=== PATIENT | female | born 1960 | race Caucasian/White ===

== ENCOUNTER 2017-11-03 21:40 | Emergency (ER) | payer BC, OTHER ==
[2017-11-03] MEDS ORDERED: Amoxicillin 500 MG Cap PO ONE (21:59)
--- NOTE | 2017-11-03 22:02 | EDM.PDOC ---
ED HPI GENERAL MEDICAL PROBLEM - General Chief Complaint: Upper Extremity Injury/Pain Stated Complaint: FELL AND HURT LT ELBOW Time Seen by Provider: 11/03/17 21:40 Source of Information: Reports: Patient History Limitations: Reports: No Limitations - History of Present Illness INITIAL COMMENTS - FREE TEXT/NARRATIVE: 57 y.o.w.f bumped her left arm against a car door and felt a Bump and mile bleed at her left prox forearm. Pt has no LOF, FROM of all her extr. Pt is currently taking care for her . No other acute medical issues. BP 130/ 73 pulse 80 RR 18 Temp 36.4 Pulse ox 99% on RA. Onset: Today Onset Date: 11/03/17 Onset Time: 14:00 Duration: Hour(s): Location: Reports: Upper Extremity, Left Quality: Reports: Ache Severity: Mild Improves with: Reports: Rest Worsens with: Reports: Movement Context: Reports: Trauma (fell on left forearm) Associated Symptoms: Reports: No Other Symptoms left elbow Pain Score (Numeric/FACES): 5 - Related Data Allergies Allergy/AdvReac Type Severity Reaction Status Date / Time codeine Allergy Change Verified 11/03/17 21:51 Mental Status tree nut Allergy Hives Verified 11/03/17 21:51 Home Meds: Home Meds Gabapentin [Neurontin] 600 mg PO QID 10/27/13 [History] Lysine 1,000 mg PO DAILY 10/27/13 [History] Multivitamin [Multivitamins] 1 cap PO DAILY 10/27/13 [History] Naproxen Sodium [Aleve] 1 - 2 tab PO BID PRN 10/27/13 [History] Sennosides/Docusate Sodium [Stool Softener] 1 tab PO DAILY 10/27/13 [History] Simvastatin [Zocor] 40 mg PO DAILY 10/27/13 [History] Acetaminophen [Pain Relief] 1 - 2 tab PO Q4H PRN 09/03/14 [History] Albuterol Sulfate [Proair Hfa] 2 puff INH Q4H PRN 09/03/14 [History] Cyclobenzaprine [Flexeril] 10 mg PO TID PRN 09/03/14 [History] Furosemide 20 mg PO DAILY PRN 09/03/14 [History] Losartan [Cozaar] 50 mg PO DAILY 09/03/14 [History] Montelukast [Singulair] 10 mg PO BEDTIME 09/03/14 [History] Niacin 500 mg PO DAILY 09/03/14 [History] Potassium Gluconate 1 tab PO DAILY 09/03/14 [History] Triamcinolone Acetonide [Triamcinolone Acetonide 0.1% Crm] 1 applic TOP TID [History] Budesonide/Formoterol Fumarate [Symbicort 80-4.5 Mcg Inhaler] 1 puff IH BID 01/29 [History] Furosemide [Furosemide] 20 mg PO DAILY 08/19/16 [History] Gemfibrozil [Gemfibrozil] 600 mg PO BID 08/19/16 [History] Amitriptyline [Elavil] 40 mg PO BEDTIME 11/03/17 [History] Amoxicillin 500 mg PO Q8HR #30 capsule 11/03/17 [Rx] FLUoxetine HCl [Prozac] 20 mg PO DAILY 11/03/17 [History] Rizatriptan [Maxalt] 10 mg PO DAILY PRN 11/03/17 [History] Past Medical History HEENT History: Reports: Cataract, Impaired Vision, Other (See Below) Other HEENT History: lens implant Cardiovascular History: Reports: High Cholesterol, Hypertension Respiratory History: Reports: Asthma, Bronchitis, Recurrent, COPD, Pneumonia, Recurrent 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 Musculoskeletal History: Reports: Back Pain, Chronic, Other (See Below) Other Musculoskeletal History: Fx R wrist, bulge disc, L ankle sprain Neurological History: Reports: Concussion - Past Surgical History HEENT Surgical History: Reports: Cataract Surgery, Eye Surgery, Tonsillectomy GI Surgical History: Reports: Appendectomy, Cholecystectomy, Hernia, Inguinal Social & Family History - Tobacco Use Smoking Status *Q: Current Some Day Smoker Years of Tobacco use: 40 Packs/Tins Daily: 0.2 Used Tobacco, but Quit: Yes - Alcohol Use Days Per Week of Alcohol Use: 0 - Recreational Drug Use Recreational Drug Use: Yes Drug Use in Last 12 Months: No Recreational Drug Type: Reports: Methamphetamine Recreational Drug Use Frequency: Not Used In Over 6 Months Review of Systems - Review of Systems Review Of Systems: See Below Constitutional: Reports: No Symptoms Eyes: Reports: No Symptoms Ears: Reports: No Symptoms Nose: Reports: No Symptoms Mouth/Throat: Reports: No Symptoms Respiratory: Reports: No Symptoms Cardiovascular: Reports: No Symptoms GI/Abdominal: Reports: No Symptoms Genitourinary: Reports: No Symptoms Musculoskeletal: Reports: No Symptoms Skin: Reports: Wound (minor abrsasion left proximal forearm. ) Neurological: Reports: No Symptoms Psychiatric: Reports: No Symptoms ED EXAM, GENERAL - Physical Exam Exam: See Below Exam Limited By: No Limitations General Appearance: Alert, WD/WN, No Apparent Distress Eye Exam: Bilateral Eye: Normal Inspection Ears: Normal External Exam Ear Exam: Bilateral Ear: Auricle Normal Nose: Normal Inspection, Normal Mucosa Throat/Mouth: Normal Inspection, Normal Lips Head: Atraumatic, Normocephalic Neck: Normal Inspection, Supple, Non-Tender Respiratory/Chest: No Respiratory Distress, Lungs Clear, Normal Breath Sounds Cardiovascular: Normal Peripheral Pulses, Regular Rate, Rhythm, No Edema, No Gallop Peripheral Pulses: 1+: Radial (R) GI/Abdominal: Normal Bowel Sounds, Soft, Non-Tender, No Organomegaly (Female) Exam: Deferred Rectal (Female) Exam: Deferred Back Exam: Normal Inspection Extremities: Normal Range of Motion, Non-Tender, Normal Capillary Refill, Other (minor abrasion left prox forearm with SQ hematoma) Neurological: Alert, Oriented, CN II-XII Intact, Normal Cognition, Normal Gait Psychiatric: Normal Affect, Normal Mood Skin Exam: Warm, Dry, Wound/Incision (minor abrasion left prox forearm with SQ hematoma) Lymphatic: No Adenopathy Course - Vital Signs Text/Narrative:: 57 y.o.w.f bumped her left arm against a car door and felt a Bump and mile bleed at her left prox forearm. Pt has no LOF, FROM of all her extr. Pt is currently taking care for her . No other acute medical issues. BP 130/ 73 pulse 80 RR 18 Temp 36.4 Pulse ox 99% on RA. PE: WNWD W F NAD with a minor SQ hemotoma and abrasion lefy prox forarm with minor abrasion. Imaging: Not indicated Impression: SQ hematoma with abrasion left prox forearm. Tx: Abx, ICE, ACEwrap, wound care Reexam: Improved Plan: D/C with instructions Last Recorded V/S: Last Vital Signs Temp 36.5 C 11/03/17 21:40 Pulse 80 11/03/17 21:40 Resp 18 11/03/17 21:40 BP 130/73 11/03/17 21:40 Pulse Ox 99 11/03/17 21:40 - Orders/Labs/Meds Orders: Active Orders 24 hr Category Date Time Status Vaccines to be Administered [RC] PER UNIT ROUTINE Care 11/03/17 22:10 Active Meds: Medications Discontinued Medications Generic Name Dose Route Start Last Admin Trade Name Bhavna PRN Reason Stop Dose Admin Amoxicillin 500 mg 11/03/17 21:59 11/03/17 22:08 Amoxil PO 11/03/17 22:00 500 mg ONETIME ONE Administration Diphtheria/Tetanus/Acell Pertussis 0.5 ml 11/03/17 22:10 11/03/17 22:13 Adacel IM 11/03/17 22:11 0.5 ml .ONCE ONE Administration Departure - Departure Time of Disposition: 22:00 Disposition: Home, Self-Care 01 Condition: Good Clinical Impression: Bruise Abrasion forearm Qualifiers: Encounter type: initial encounter Laterality: left Qualified Code(s): S50.812A - Abrasion of left forearm, initial encounter - Discharge Information Prescriptions: Amoxicillin 500 mg PO Q8HR #30 capsule Instructions: Elbow Contusion Referrals: Shankar Hollingsworth MD [Primary Care Provider] - Forms: ED Department Discharge Additional Instructions: ICE, rest and elevation, Abx as recommended, Motrin for pain, please follow up, please come back if your symptoms get worse acutely. - My Orders Last 24 Hours: My Active Orders 11/03/17 22:10 Vaccines to be Administered [RC] PER UNIT ROUTINE - Assessment/Plan Last 24 Hours: My Active Orders 11/03/17 22:10 Vaccines to be Administered [RC] PER UNIT ROUTINE
[2017-11-03 22:06] VITALS: BP 130/73
[2017-11-03] MEDS ORDERED: Diphtheria,Pertussis(Acell),Tetanus Vaccine 0.5 ML SDV IM ONE (22:10)
== END 2017-11-03 22:18 | disposition home or self-care (01) ==
LOC: FB.ED 21:40
DX: S50.12XA Contusion of left forearm, initial encounter (principal); S50.812A Abrasion of left forearm, initial encounter; Z23 Encounter for immunization; I10 Essential (primary) hypertension; E78.00 Pure hypercholesterolemia, unspecified; J44.9 Chronic obstructive pulmonary disease, unspecified; F17.210 Nicotine dependence, cigarettes, uncomplicated; Z79.899 Other long term (current) drug therapy; Z88.5 Allergy status to narcotic agent; Z91.018 Allergy to other foods; W01.198A Fall on same level from slipping, tripping and stumbling with subsequent striking against other object, initial encounter
CPT/HCPCS: 90471; 90715; 99283; A9270

== ENCOUNTER 2020-05-10 22:42 | Emergency (ER) | payer OTHER ==
[2020-05-10] MEDS ORDERED: Sodium Chloride 0.9% 10 ML Syringe FLUSH PRN (23:20)
--- NOTE | 2020-05-10 23:39 | EDM.PDOC ---
ED HPI GENERAL MEDICAL PROBLEM - General Chief Complaint: Neuro Symptoms/Deficits Stated Complaint: MEMORY LOSS Time Seen by Provider: 05/10/20 23:29 Source of Information: Reports: Patient, Family History Limitations: Reports: No Limitations - History of Present Illness INITIAL COMMENTS - FREE TEXT/NARRATIVE: states that since 1600 today, patient has had a significant and abrupt cognitive decline. She is unable to remember what she ate for lunch, that she visited daughter's house today, and her daughter's age. Patient was asking repetitively where her purse was located, despite being given the answer. ED RN noted that she believes she is 57 yo, and does not know how long she has been . Patient also does not remember that she attended a picnic yesterday. Complains of slight frontal headache. Denies chest pain or SOB. 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 Onset: Today Onset Date: 05/10/20 Onset Time: 16:00 Severity: Moderate forehead Pain Score (Numeric/FACES): 4 - Related Data Allergies Allergy/AdvReac Type Severity Reaction Status Date / Time codeine Allergy Change Verified 11/03/17 21:51 Mental Status tree nut Allergy Hives Verified 11/03/17 21:51 Home Meds: Home Meds Gabapentin [Neurontin] 600 mg PO QID 10/27/13 [History] Lysine 1,000 mg PO DAILY 10/27/13 [History] Multivitamin [Multivitamins] 1 cap PO DAILY 10/27/13 [History] Naproxen Sodium [Aleve] 1 - 2 tab PO BID PRN 10/27/13 [History] Sennosides/Docusate Sodium [Stool Softener] 1 tab PO DAILY 10/27/13 [History] Simvastatin [Zocor] 40 mg PO DAILY 10/27/13 [History] Acetaminophen [Pain Relief] 1 - 2 tab PO Q4H PRN 09/03/14 [History] Albuterol Sulfate [Proair Hfa] 2 puff INH Q4H PRN 09/03/14 [History] Cyclobenzaprine [Flexeril] 10 mg PO TID PRN 09/03/14 [History] Furosemide 20 mg PO DAILY PRN 09/03/14 [History] Losartan [Cozaar] 50 mg PO DAILY 09/03/14 [History] Montelukast [Singulair] 10 mg PO BEDTIME 09/03/14 [History] Niacin 500 mg PO DAILY 09/03/14 [History] Potassium Gluconate 1 tab PO DAILY 09/03/14 [History] Triamcinolone Acetonide [Triamcinolone Acetonide 0.1% Crm] 1 applic TOP TID 09/03/14 [History] Budesonide/Formoterol Fumarate [Symbicort 80-4.5 MCG] 1 puff IH BID 08/19/16 [History] Furosemide 20 mg PO DAILY 08/19/16 [History] Gemfibrozil 600 mg PO BID 08/19/16 [History] Amitriptyline [Elavil] 40 mg PO BEDTIME 11/03/17 [History] Amoxicillin 500 mg PO Q8HR #30 capsule 11/03/17 [Rx] FLUoxetine HCl [Prozac] 20 mg PO DAILY 11/03/17 [History] Rizatriptan [Maxalt] 10 mg PO DAILY PRN 11/03/17 [History] Past Medical History HEENT History: Reports: Cataract, Impaired Vision, Other (See Below) Other HEENT History: lens implant Cardiovascular History: Reports: High Cholesterol, Hypertension Respiratory History: Reports: Asthma, Bronchitis, Recurrent, COPD, Pneumonia, Recurrent 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 ED EXAM, NEURO - Physical Exam Exam: See Below Exam Limited By: No Limitations General Appearance: Alert, WD/WN, No Apparent Distress Eye Exam: Bilateral Eye: EOMI, PERRL Ears: Normal External Exam Nose: Normal Inspection Throat/Mouth: No Airway Compromise Head Exam: Atraumatic, Normocephalic Neck: Supple, Full Range of Motion Respiratory/Chest: No Respiratory Distress, Lungs Clear, Normal Breath Sounds Cardiovascular: Regular Rate, Rhythm, No Murmur GI/Abdominal: No Distention Neurological: Alert, Normal Mood/Affect, CN II-XII Intact, No Motor/Sensory Deficits, Other (NIHSS score=2 (LOC questions). GCS=14 (E4, V4, M6)) Back Exam: Full Range of Motion Extremities: Normal Inspection, Normal Range of Motion, No Pedal Edema Psychiatric: Normal Affect, Normal Mood Skin Exam: Warm, Dry, Intact EKG INTERPRETATION EKG Date: 05/11/20 Time: 23:15 Rhythm: NSR Rate (Beats/Min): 70 [place]: Normal P-Wave: Present QRS: Normal ST-T: Normal QT: Normal Course - Vital Signs Last Recorded V/S: Last Vital Signs Temp 36.1 C 05/10/20 22:42 Pulse 79 05/10/20 22:42 Resp 17 05/10/20 22:42 BP 134/75 05/10/20 22:42 Pulse Ox 100 05/10/20 22:42 - Orders/Labs/Meds Orders: Active Orders 24 hr Category Date Time Status EKG Documentation Completion [RC] ASDIRECTED Care 05/10/20 23:14 Active Head wo Cont [CT] Stat Exams 05/10/20 23:14 Taken CULTURE URINE [RM] Stat Lab 05/10/20 23:08 Received THYROXINE (T4) FREE, DIRECT, S Stat Lab 05/11/20 00:06 Received Sodium Chloride 0.9% [Normal Saline] 1,000 ml Med 05/10/20 23:56 Active IV .BOLUS Sodium Chloride 0.9% [Saline Flush] Med 05/10/20 23:20 Active 10 ml FLUSH ASDIRECTED PRN cefTRIAXone [Rocephin] Med 05/11/20 00:45 Ordered 1 gm IVPUSH .ONCE Saline Lock Insert [OM.PC] Routine Oth 05/10/20 23:20 Ordered EKG 12 Lead [EK] Stat Ther 05/10/20 23:14 Ordered Medication Orders Ceftriaxone Sodium (Rocephin) 1 gm IVPUSH .ONCE MAKENZIE Sodium Chloride (Normal Saline) 1,000 mls @ 999 mls/hr IV .BOLUS ONE Stop: 05/11/20 00:56 Sodium Chloride (Saline Flush) 10 ml FLUSH ASDIRECTED PRN PRN Reason: Keep Vein Open Labs: Laboratory Tests 05/10/20 05/10/20 05/10/20 Range/Units 23:08 23:08 23:25 WBC 9.0 (4.5-12.0) X10-3/uL RBC 4.14 (3.23-5.20) x10(6)uL Hgb 12.7 (11.5-15.5) g/dL Hct 38.2 (30.0-51.3) % MCV 92.2 (80-96) fL MCH 30.6 (27.7-33.6) pg MCHC 33.2 (32.2-35.4) g/dL RDW 12.3 (11.5-15.5) % Plt Count 227 (125-369) X10(3)uL MPV 8.8 (7.4-10.4) fL Neut % (Auto) 57.2 (46-82) % Lymph % (Auto) 33.5 (13-37) % Bee % (Auto) 7.4 (4-12) % Eos % (Auto) 1 (1.0-5.0) % Baso % (Auto) 1 (0-2) % Neut # (Auto) 5.1 (1.6-8.3) # Lymph # (Auto) 3.0 (0.6-5.0) # Bee # (Auto) 0.7 (0.0-1.3) # Eos # (Auto) 0.1 (0.0-0.8) # Baso # (Auto) 0.1 (0.0-0.2) # PT (9.0-11.1) sec INR (1.00-1.24) APTT (24.4-33.2) SECONDS Sodium (135-145) mmol/L Potassium (3.5-5.3) mmol/L Chloride (100-110) mmol/L Carbon Dioxide (21-32) mmol/L BUN (7-18) mg/dL Creatinine (0.55-1.02) mg/dL Est Cr Clr Drug Dosing mL/min Estimated GFR (MDRD) (>60) BUN/Creatinine Ratio (9-20) Glucose (80-116) mg/dL Calcium (8.6-10.2) mg/dL Total Bilirubin (0.1-1.3) mg/dL AST (5-25) IU/L ALT (12-36) U/L Alkaline Phosphatase (56-112) IU/L Troponin I (4.0-60.3) pg/mL Total Protein (6.0-8.0) g/dL Albumin (3.2-4.6) g/dL Globulin g/dL Albumin/Globulin Ratio TSH, Ultra Sensitive (0.36-3.74) IU/mL Urine Color Yellow (YELLOW) Urine Appearance Slightly cloudy (CLEAR) Urine pH 7.0 H (5.0-6.5) Ur Specific [place] 1.010 (1.010-1.025) Urine Protein Negative (NEGATIVE) mg/dL Urine Glucose (UA) Normal (NORMAL) mg/dL Urine Ketones Negative (NEGATIVE) mg/dL Urine Occult Blood Negative (NEGATIVE) Urine Nitrite Negative (NEGATIVE) Urine Bilirubin Negative (NEGATIVE) Urine Urobilinogen Normal (NEGATIVE) mg/dL Ur Leukocyte Esterase Small H (NEGATIVE) Urine RBC 0-5 (0-5) Urine WBC 5-10 H (0-5) Ur Squamous Epith Cells Few H (NS,R,O) Urine Bacteria Many H (NS) Urine Opiates Screen Negative (NEGATIVE) Ur Oxycodone Screen Negative (NEGATIVE) Ur Propoxyphene Screen Negative (NEGATIVE) Ur Barbituates Screen Negative (NEGATIVE) Ur Tricyclics Screen Positive H (NEGATIVE) Ur Phencyclidine Scrn Negative (NEGATIVE) Ur Amphetamine Screen Negative (NEGATIVE) Urine MDMA Screen Negative (NEGATIVE) U Benzodiazepines Scrn Negative (NEGATIVE) U Cocaine Metab Screen Negative (NEGATIVE) U Marijuana (THC) Screen Negative (NEGATIVE) Ethyl Alcohol (<0.03) % 05/10/20 05/10/20 05/10/20 Range/Units 23:25 23:25 23:25 WBC (4.5-12.0) X10-3/uL RBC (3.23-5.20) x10(6)uL Hgb (11.5-15.5) g/dL Hct (30.0-51.3) % MCV (80-96) fL MCH (27.7-33.6) pg MCHC (32.2-35.4) g/dL RDW (11.5-15.5) % Plt Count (125-369) X10(3)uL MPV (7.4-10.4) fL Neut % (Auto) (46-82) % Lymph % (Auto) (13-37) % Bee % (Auto) (4-12) % Eos % (Auto) (1.0-5.0) % Baso % (Auto) (0-2) % Neut # (Auto) (1.6-8.3) # Lymph # (Auto) (0.6-5.0) # Bee # (Auto) (0.0-1.3) # Eos # (Auto) (0.0-0.8) # Baso # (Auto) (0.0-0.2) # PT 10.8 (9.0-11.1) sec INR 1.00 (1.00-1.24) APTT 24.3 L (24.4-33.2) SECONDS Sodium 140 (135-145) mmol/L Potassium 3.9 (3.5-5.3) mmol/L Chloride 105 (100-110) mmol/L Carbon Dioxide 27 (21-32) mmol/L BUN 30 H (7-18) mg/dL Creatinine 1.6 H (0.55-1.02) mg/dL Est Cr Clr Drug Dosing 31.88 mL/min Estimated GFR (MDRD) 33 L (>60) BUN/Creatinine Ratio 18.8 (9-20) Glucose 180 H (80-116) mg/dL Calcium 9.3 (8.6-10.2) mg/dL Total Bilirubin 0.4 (0.1-1.3) mg/dL AST 16 (5-25) IU/L ALT 23 (12-36) U/L Alkaline Phosphatase 43 L (56-112) IU/L Troponin I 7.4 (4.0-60.3) pg/mL Total Protein 7.1 (6.0-8.0) g/dL Albumin 3.7 (3.2-4.6) g/dL Globulin 3.4 g/dL Albumin/Globulin Ratio 1.1 TSH, Ultra Sensitive (0.36-3.74) IU/mL Urine Color (YELLOW) Urine Appearance (CLEAR) Urine pH (5.0-6.5) Ur Specific [place] (1.010-1.025) Urine Protein (NEGATIVE) mg/dL Urine Glucose (UA) (NORMAL) mg/dL Urine Ketones (NEGATIVE) mg/dL Urine Occult Blood (NEGATIVE) Urine Nitrite (NEGATIVE) Urine Bilirubin (NEGATIVE) Urine Urobilinogen (NEGATIVE) mg/dL Ur Leukocyte Esterase (NEGATIVE) Urine RBC (0-5) Urine WBC (0-5) Ur Squamous Epith Cells (NS,R,O) Urine Bacteria (NS) Urine Opiates Screen (NEGATIVE) Ur Oxycodone Screen (NEGATIVE) Ur Propoxyphene Screen (NEGATIVE) Ur Barbituates Screen (NEGATIVE) Ur Tricyclics Screen (NEGATIVE) Ur Phencyclidine Scrn (NEGATIVE) Ur Amphetamine Screen (NEGATIVE) Urine MDMA Screen (NEGATIVE) U Benzodiazepines Scrn (NEGATIVE) U Cocaine Metab Screen (NEGATIVE) U Marijuana (THC) Screen (NEGATIVE) Ethyl Alcohol (<0.03) % 05/10/20 05/10/20 Range/Units 23:25 23:25 WBC (4.5-12.0) X10-3/uL RBC (3.23-5.20) x10(6)uL Hgb (11.5-15.5) g/dL Hct (30.0-51.3) % MCV (80-96) fL MCH (27.7-33.6) pg MCHC (32.2-35.4) g/dL RDW (11.5-15.5) % Plt Count (125-369) X10(3)uL MPV (7.4-10.4) fL Neut % (Auto) (46-82) % Lymph % (Auto) (13-37) % Bee % (Auto) (4-12) % Eos % (Auto) (1.0-5.0) % Baso % (Auto) (0-2) % Neut # (Auto) (1.6-8.3) # Lymph # (Auto) (0.6-5.0) # Bee # (Auto) (0.0-1.3) # Eos # (Auto) (0.0-0.8) # Baso # (Auto) (0.0-0.2) # PT (9.0-11.1) sec INR (1.00-1.24) APTT (24.4-33.2) SECONDS Sodium (135-145) mmol/L Potassium (3.5-5.3) mmol/L Chloride (100-110) mmol/L Carbon Dioxide (21-32) mmol/L BUN (7-18) mg/dL Creatinine (0.55-1.02) mg/dL Est Cr Clr Drug Dosing mL/min Estimated GFR (MDRD) (>60) BUN/Creatinine Ratio (9-20) Glucose (80-116) mg/dL Calcium (8.6-10.2) mg/dL Total Bilirubin (0.1-1.3) mg/dL AST (5-25) IU/L ALT (12-36) U/L Alkaline Phosphatase (56-112) IU/L Troponin I (4.0-60.3) pg/mL Total Protein (6.0-8.0) g/dL Albumin (3.2-4.6) g/dL Globulin g/dL Albumin/Globulin Ratio TSH, Ultra Sensitive 6.74 H (0.36-3.74) IU/mL Urine Color (YELLOW) Urine Appearance (CLEAR) Urine pH (5.0-6.5) Ur Specific [place] (1.010-1.025) Urine Protein (NEGATIVE) mg/dL Urine Glucose (UA) (NORMAL) mg/dL Urine Ketones (NEGATIVE) mg/dL Urine Occult Blood (NEGATIVE) Urine Nitrite (NEGATIVE) Urine Bilirubin (NEGATIVE) Urine Urobilinogen (NEGATIVE) mg/dL Ur Leukocyte Esterase (NEGATIVE) Urine RBC (0-5) Urine WBC (0-5) Ur Squamous Epith Cells (NS,R,O) Urine Bacteria (NS) Urine Opiates Screen (NEGATIVE) Ur Oxycodone Screen (NEGATIVE) Ur Propoxyphene Screen (NEGATIVE) Ur Barbituates Screen (NEGATIVE) Ur Tricyclics Screen (NEGATIVE) Ur Phencyclidine Scrn (NEGATIVE) Ur Amphetamine Screen (NEGATIVE) Urine MDMA Screen (NEGATIVE) U Benzodiazepines Scrn (NEGATIVE) U Cocaine Metab Screen (NEGATIVE) U Marijuana (THC) Screen (NEGATIVE) Ethyl Alcohol < 0.03 (<0.03) % Meds: Medications Generic Name Dose Route Start Last Admin Trade Name Freq PRN Reason Stop Dose Admin Ceftriaxone Sodium 1 gm 05/11/20 00:45 Rocephin IVPUSH .ONCE MAKENZIE Sodium Chloride 1,000 mls @ 999 mls/hr 05/10/20 23:56 Normal Saline IV 05/11/20 00:56 .BOLUS ONE Sodium Chloride 10 ml 05/10/20 23:20 Saline Flush FLUSH ASDIRECTED PRN Keep Vein Open - Radiology Interpretation Free Text/Narrative:: EXAM: CT HEAD WITHOUT CONTRAST INDICATION: ICD-10 R41.82 Altered mental status altered mental status TECHNIQUE: CT of the brain performed without IV contrast. COMPARISON(S): MRI dated 06/29/2018 FINDINGS: There is no acute large vascular distribution infarction, midline shift, mass lesion or herniation. There is no acute intracranial hemorrhage. There are a few scattered small foci of nonspecific low-attenuation in the supratentorial white matter likely representing chronic small vessel ischemic change. The ventricles, sulci and basilar cisterns are relatively symmetric. Epstein-white differentiation appears preserved. No acute findings identified in the scalp, calvarium, visualized portions of the orbits, paranasal sinuses or mastoid air cells. IMPRESSION: 1. No acute intracranial findings identified. 2. Nonspecific white matter changes likely the sequela of chronic small vessel ischemic disease. Preliminary results of this examination were discussed with the ordering provider on 05/11/2020 0007 hours CDT. Finalized by: Aren Matute MD on 05/11/2020 12:08 AM CDT Patient/Procedure Information: [facility] MRN/CRYSTAL: [id number]/ Order Number: [id number] Accession Number: [id number] - Re-Assessments/Exams Free Text/Narrative Re-Assessment/Exam: 05/11/20 00:40 Patient care discussed with Dr. Aviles ([facility]), believes symptoms are consistent with TGA, recommends MRI Brain and EEG. Dr. Aleman ([facility]) accepts patient for transfer. Departure - Departure Time of Disposition: 00:42 Disposition: DC/Tfer to [facility] 02 Condition: Fair Clinical Impression: Transient global amnesia, MARGE (acute kidney injury) UTI (urinary tract infection) Qualifiers: Urinary tract infection type: acute cystitis Hematuria presence: without hematuria Qualified Code(s): N30.00 - Acute cystitis without hematuria - Discharge Information *PRESCRIPTION DRUG MONITORING PROGRAM REVIEWED*: No *COPY OF PRESCRIPTION DRUG MONITORING REPORT IN PATIENT NIKKI: Not Applicable Referrals: Shankar Hollingsworth MD [Primary Care Provider] - Forms: ED Department Discharge Sepsis Event Note (ED) - Evaluation Sepsis Screening Result: No Definite Risk - Focused Exam Vital Signs: Vital Signs Temp Pulse Resp BP Pulse Ox 05/10/20 22:42 36.1 C 79 17 134/75 100 - My Orders Last 24 Hours: My Active Orders 05/10/20 23:08 CULTURE URINE [RM] Stat 05/10/20 23:14 EKG Documentation Completion [RC] ASDIRECTED Head wo Cont [CT] Stat EKG 12 Lead [EK] Stat 05/10/20 23:20 Sodium Chloride 0.9% [Saline Flush] 10 ml FLUSH ASDIRECTED PRN Saline Lock Insert [OM.PC] Routine 05/10/20 23:56 Sodium Chloride 0.9% [Normal Saline] 1,000 ml IV .BOLUS 05/11/20 00:06 THYROXINE (T4) FREE, DIRECT, S Stat 05/11/20 00:45 cefTRIAXone [Rocephin] 1 gm IVPUSH .ONCE - Assessment/Plan Last 24 Hours: My Active Orders 05/10/20 23:08 CULTURE URINE [RM] Stat 05/10/20 23:14 EKG Documentation Completion [RC] ASDIRECTED Head wo Cont [CT] Stat EKG 12 Lead [EK] Stat 05/10/20 23:20 Sodium Chloride 0.9% [Saline Flush] 10 ml FLUSH ASDIRECTED PRN Saline Lock Insert [OM.PC] Routine 05/10/20 23:56 Sodium Chloride 0.9% [Normal Saline] 1,000 ml IV .BOLUS 05/11/20 00:06 THYROXINE (T4) FREE, DIRECT, S Stat 05/11/20 00:45 cefTRIAXone [Rocephin] 1 gm IVPUSH .ONCE
[2020-05-10] MEDS ORDERED: Sodium Chloride 0.9% 1,000 ML IV ONE (23:56)
[2020-05-11] MEDS ORDERED: cefTRIAXone 1 GM Vial IVPUSH SCH (00:45)
[2020-05-11] MEDS ORDERED: Sodium Chloride 0.9% 1,000 ML IV SCH (01:30)
[2020-05-11 01:56] VITALS: BP 112/66; PULSE 72
== END 2020-05-11 01:30 ==
LOC: FB.ED 22:42
DX: N17.9 Acute kidney failure, unspecified (principal); N30.00 Acute cystitis without hematuria; G45.4 Transient global amnesia; E78.00 Pure hypercholesterolemia, unspecified; I10 Essential (primary) hypertension; J44.9 Chronic obstructive pulmonary disease, unspecified; Z88.5 Allergy status to narcotic agent; Z91.018 Allergy to other foods
CPT/HCPCS: 36415; 70450; 80053; 80305-QW; 80307; 81001; 84439; 84443; 84484; 85025; 85610; 85730; 87086; 87088; 87186; 93005; 99285-25; J0696; J7030